=== PATIENT | male | born 1995 | race Caucasian/White ===

== ENCOUNTER 2018-03-11 12:40 | Emergency (ER) | payer OTHER ==
[~2018-03-11] VITALS: Ht 172.7 cm; Wt 68.0 kg
[2018-03-11 12:58] VITALS: BP_SYST 127
[2018-03-11 13:26] VITALS: BP_SYST 127
== END 2018-03-11 13:25 | disposition home or self-care (01) ==
LOC: SED 12:40
DX: B86 Scabies (principal); R03.0 Elevated blood-pressure reading, without diagnosis of hypertension
CPT/HCPCS: 99282